=== PATIENT | female | born 1980 | race Caucasian/White ===

== ENCOUNTER → 2016-08-24 | Outpatient (CLI) | payer OTHER ==
[~2016-08-24] MED LIST: ASPI-435 PO; HYDR-5688 PO; IBUP-1450 PO; OXYC-57 PO; PROM25TA9 PO
[2016-08-24 13:21] LABS: URINE APPEARANCE CLEAR (CLEAR); URINE BILIRUBIN NEG (NEG); URINE COLOR YELLOW; URINE EPITHELIAL CELL AUTO >30 /lpf (0-5); URINE NITRITE NEG (NEG); URINE SPECIFIC GRAVITY 1.009 (1.000-1.030); UROBILINOGEN NEG (NEG)
[2016-08-24 13:24] LABS: MANUAL MICROSCOPIC REQUIRED? NO; REVIEW REQ? NO
== END | disposition home or self-care (01) ==
LOC: C.LABPBG 09:45
PROVIDERS: ATTEND Internal Medicine
DX: R31.29 Other microscopic hematuria (principal); R00.2 Palpitations

== ENCOUNTER → 2017-03-26 | Day surgery (SDC) | payer OTHER ==
[2017-03-24 16:13] VITALS: BMI 21.0
--- NOTE | 2017-03-25 22:19 | History and Physical ---
History & Physical Date Mar 25, 2017. Chief Complaint Left foot pain History of Present Illness The patient is a 36 year old female with complaints of left foot pain after an inversion injury to the left foot and ankle on 03.19.17. She had x-rays done on the left foot which noted a displaced 5th metatarsal shaft fx. She was placed in a splint and kept NWB. She was referred to us for surgical evaluation. Past Medical/Surgical History PMH: None Family Hx: non contributory Past surgical hx: C sections x 2. Allergies Coded Allergies: No Known Allergies (Unverified , 03/24/17) Home Medications Scheduled PRN Hydrocodone/Acetaminophen 5MG/325MG ([place] 5MG/325MG), 1 TABLET PO Q4 PRN for Pain Physical Examination Skin: warm/dry, no rash Eyes: normal inspection Head: normocephalic, atraumatic Neck: supple, trachea midline Respiratory/Chest: lungs clear, normal breath sounds, no respiratory distress Cardiovascular: regular rate, rhythm, no murmur Abdomen / GI: normal bowel sounds, non tender Extremities: + pertinent finding (Left foot: NWB LLE. Moderate swelling of the left foot with ecchymosis over the lateral foot. Tender to palpation at the 5th metatarsal shaft. No ROM or strength testing done.) Neurologic/Psych: alert, oriented x 3 Addiitonal Comments: 3 views of the left foot demonstrate a comminuted and angulated 5th metatarsal shaft fx. Diagnosis Left 5th metatarsal fx Plan of Treatment An ORIF of the left 5th metatarsal fx is recommended. All potential risks, benefits, complications, alternatives, and rehab have been discussed with the patient. She wishes to proceed with the surgery as indicated. She will be scheduled for 03.26.17 with plan of ASA 81 mg BID for at least 4 wks for DVT prophylaxis.
[~2017-03-26] VITALS: Ht 170.2 cm; Wt 62.3 kg
[~2017-03-26] MED LIST changes: +ATROPINE SULFATE 0.1 MG/ML 5ML SYR IV PRN; +BACITRACIN 50000 UNIT VIAL ONE; +BUPIVACAINE 0.5 % 5 MG/1 ML MPF 30ML VIAL ONE; +CEFAZOLIN SOD 1000MG/55 ML D5W IV ONE; +DEXAMETHASONE SOD INJ 4 MG/ML VIAL ONE; +EpHEDrine SULFATE INJ 50 MG/ML AMP IV PRN; +FENTANYL CITRATE INJ 50 MCG/1 ML 2 ML VIAL ONE; +KETAMINE HCL INJ 50 MG/ML 10 ML VIAL ONE; +LACTATED RINGER'S 1000ML 1,000 ML IV SCH; +LIDOCAINE HCL 2% 2 ML VIAL (20MG/ML) ONE; +MIDAZOLAM HCL 1 MG/ML 2ML VIAL ONE; +ONDANSETRON INJ 2 MG/ML 2 ML VIAL IV PRN; +ONDANSETRON INJ 2 MG/ML 2 ML VIAL ONE; +OXYCODONE/ACETAMINOPHEN 5-325 TAB ONE; +OXYCODONE/ACETAMINOPHEN 5-325 TAB PO PRN; +PROPOFOL IV EMULSION 10 MG/ML 20 ML VIAL IV ONE; +ROPIVACAINE 0.5% 5 MG/ML 30 ML VIAL ONE
[2017-03-26 05:54] VITALS: BP 130/71; PULSE 55; TEMP 36.9; O2SAT 100; Ht 170.2 cm; Wt 62.3 kg
--- NOTE | 2017-03-26 07:50 | History & Physical Bridge Note ---
H&P Re-Evaluation Bridge Note: I have examined the patient, reviewed the History & Physical and in the interval since the performance of the History & Physical I have noted the following changes of clinical significance: No changes noted
--- NOTE | 2017-03-26 09:26 | DIAGNOSTIC IMAGING REPORT ---
Radiology LEFT FOOT 2 VIEWS CLINICAL HISTORY: 36 years-old Female presenting with ORIF LEFT 5TH METATARSAL FX. TECHNIQUE: 2 fluoroscopic spot image(s) obtained as part of an intraoperative procedure. COMPARISON: None. FINDINGS/IMPRESSION: Cortical compression plate and screw fixation of the fifth metatarsal. Normal anatomic alignment. Please see surgical report for further details. Fluoroscopy dosage (mGy): Not available. Fluoroscopy time: 9 seconds. Number of fluoroscopic spot images: 2. Electronically signed by: Jaime Varma M.D. 03/26/2017 9:25 AM Dictated Date/Time: 03/26/2017 9:24 AM
--- NOTE | 2017-03-26 09:40 | [facility] Post Operative Brief Note ---
Immediate Operative Summary Operative Date Mar 26, 2017. Pre-Operative Diagnosis Left Displaced Comminuted Angulated Fifth Metatarsal Fracture Post-Operative Diagnosis Left Displaced Comminuted Angulated Fifth Metatarsal Fracture Procedure(s) Performed Open Reduction Internal Fixation Left Fifth Metatarsal Fracture Surgeon Dr. Huynh Digital Proofing And Platemaker Surgeon(s) Gui Schumacher PA-C Estimated Blood Loss 1 cc Findings See dict Specimens none per surgeon Drains None Anesthesia GLMA w/ popliteal block Complication(s) None Disposition Recovery Room / PACU
[2017-03-26] MEDS: FENTANYL CITRATE INJ 50 MCG/1 ML 2 ML VIAL IV PRN ×4 (09:53→10:09)
--- NOTE | 2017-03-26 10:01 | Discharge Instructions ---
Discharge Instructions Date of Service Mar 26, 2017. Admission Reason for Admission: Left Foot 5th Metatarsal Fracture Discharge Discharge Diagnosis / Problem: left 5th metatarsal fracture Discharge Goals Goal(s): Decrease discomfort, Improve function Activity Recommendations Activity Limitations: per Instructions/Follow-up section Weightbearing Status: Left non-weightbearing . Instructions / Follow-Up Instructions / Follow-Up ACTIVITY RECOMMENDATIONS: Limitations: No weight bearing to affected limb at all times. SPECIAL CARE INSTRUCTIONS: * Some drainage onto the dressing is normal and is no cause for alarm. * Some swelling is natural especially after walking. * When resting, keep your foot elevated above the level of your heart. * Call [facility] if you notice: -Increased drainage -Fever over 101 degrees F -Severe constant pain BANDAGE: * Leave bandage/cast in place unless otherwise directed. * Keep bandage/cast dry at all times. * If the bandage seems too tight, you may loosen the ANYI bandages and reapply lightly. Leave the padding and splint in place. FOLLOW UP VISIT WITH DR. WASHINGTON If appointment is not already scheduled: Please call [facility] after you get home today to schedule a follow-up appointment for [address] Washington at . Current Hospital Diet Patient's current hospital diet: Discharge Diet Recommended Diet: Regular Diet Procedures Procedures Performed: Open Reduction Internal Fixation Left Fifth Metatarsal Fracture Pending Studies Studies pending at discharge: no Medical Emergencies . Who to Call and When: Medical Emergencies: If at any time you feel your situation is an emergency, please call 121 immediately. . Non-Emergent Contact Non-Emergency issues call your: Surgeon Call Non-Emergent contact if: temperature is above 101, your pain is not controlled, your pain is worsening . "Provider Documentation" section prepared by Gui Schumacher. . VTE Core Measure Inpt VTE Proph given/why not?: SCD's
[2017-03-26 10:34] VITALS: BP 129/60; PULSE 66; TEMP 36.7; O2SAT 95
--- NOTE | 2017-03-26 10:37 | DIAGNOSTIC IMAGING REPORT ---
LEFT FOOT MIN 3 VIEWS ROUTINE CLINICAL HISTORY: 36 years-old Female presenting with post op fifth metatarsal fracture fixation. TECHNIQUE: Frontal, oblique, and lateral views of the left foot were obtained. COMPARISON: 03/26/2017 fluoroscopic images. FINDINGS: Overlying plaster splint degrades evaluation of underlying osseous detail. Within this limitation, cortical compression plate and screw fixation of the fifth metatarsal noted. Additional screw fixation across the metatarsal neck. Anatomic alignment maintained. No other osseous abnormality is appreciated. IMPRESSION: No malalignment at the fifth metatarsal fracture fixation. Electronically signed by: Jaime Varma M.D. 03/26/2017 10:36 AM Dictated Date/Time: 03/26/2017 10:34 AM
[2017-03-26 11:04] VITALS: BP 131/71; PULSE 60; O2SAT 99
[2017-03-26 11:34] VITALS: BP 117/75; PULSE 59; TEMP 36.4; O2SAT 99
[2017-03-26 12:30] VITALS: BP 107/67; PULSE 71; O2SAT 98
--- NOTE | 2017-03-26 12:36 | Anesthesiology Progress Note ---
Anesthesia Post Op Note Date & Time Mar 26, 2017 at 12:36 Vital Signs Pain Intensity: 5 Vital Signs Past 12 Hours Date Time Temp Pulse Resp B/P (MAP) Pulse Ox O2 Delivery O2 Flow Rate FiO2 03/26/17 11:34 36.4 59 18 117/75 99 Room Air 03/26/17 11:04 60 18 131/71 99 Room Air 03/26/17 10:34 36.7 66 18 129/60 95 Room Air 03/26/17 10:28 36.4 03/26/17 10:20 90 16 134/97 96 Room Air 03/26/17 10:10 90 16 118/78 95 Room Air 03/26/17 09:49 36.5 113 16 149/89 100 Oxymask 10 03/26/17 05:54 36.9 55 16 130/71 (90) 100 Room Air Notes Mental Status: alert / awake / arousable, participated in evaluation Pt Amnestic to Procedure: Yes Nausea / Vomiting: adequately controlled Pain: adequately controlled Airway Patency, RR, SpO2: stable & adequate BP & HR: stable & adequate Hydration State: stable & adequate Anesthetic Complications: no major complications apparent
--- NOTE | 2017-03-30 07:06 | OPERATIVE REPORT ---
DATE OF OPERATION: 03/26/2017 PREOPERATIVE DIAGNOSIS: Left displaced comminuted and angulated fifth metatarsal fracture. POSTOPERATIVE DIAGNOSIS: Same. PROCEDURE PERFORMED: Open reduction and internal fixation of left fifth metatarsal fracture. SURGEON: Dr. Huynh. SENIOR DATA ANALYST: Gui Schumacher PA-C who was present for patient positioning, sterile prep and drape, management of retractors and instruments. He was present through the critical portions of the case including wound closure, application of sterile dressing and transport of the patient to recovery. ANESTHESIA: General LMA with popliteal block. SPECIMENS: None. DRAINS: None. COMPLICATIONS: None. BLOOD LOSS: 1 mL. PERTINENT HISTORY: This is a 36-year-old woman who had twisted her foot and felt a severe painful pop of the left foot. She had pain and swelling thereafter and difficulty ambulating. She was seen in the clinic eventually and had radiographs reviewed, was then scheduled for surgery as indicated. All potential risks, benefits, complications, alternatives, rehab, potential for incomplete relief of symptoms, need for further surgery, DVT, PE, , persistent pain, swelling, scarring, weakness, neurovascular injury, wound complications, hardware failure, nonunion, malunion were discussed with the patient. The patient decided to proceed with the procedure as indicated. PROCEDURE IN DETAIL: The patient had a popliteal block administered in the preop holding area, taken to the operative suite, placed supine on the operating room table. After review of the consent and identification of proper operative site, the patient was anesthetized, LMA was placed. Tourniquet was applied high on the left thigh over cast padding. Left lower extremity was then sterilely prepped and draped in usual fashion, elevated and exsanguinated with Esmarch bandage. Esmarch tourniquet was applied over sterile surgical towel at the level of the ankle. A 15 blade scalpel was then used to make an incision over the lateral aspect of left fifth metatarsal. Incision was then deepened through subcutaneous tissue. Meticulous hemostasis was achieved with electrocautery. Full thickness skin flaps were then developed. Next, the periosteum was then incised over the fifth metatarsal at the site of the fracture. This incision was then carefully debrided with a 15 blade scalpel and irrigation with sterile normal saline. Next, a dental pick was then used to manipulate the fracture fragments and remove any extraneous fibrinous debris and a blood clot and then the fracture was then reduced using bone reduction forceps. Next, 0.8 K-wire x2 were placed across the fracture fragments to stabilize the fracture in near anatomic position. Next, a Synthes 2.4 mm titanium plate was then contoured and affixed to the lateral aspect of the fifth metatarsal with multiple bone screws placed under live fluoroscopic assistance. A single lag screw was placed from superior to inferior, crossing the fracture fragments as a lag screw. Next, multiple lag screws were placed through the plate into the bone fracture fragments to stabilize and compress them as well. Next, final radiographs were obtained in AP, lateral and oblique positions, noting near anatomic reduction and fixation. The wound was then copiously irrigated with sterile normal saline. Deep soft tissue and periosteum was then closed using interrupted 2-0 Vicryl sutures. The dermis was then closed using buried interrupted 3-0 Vicryl sutures. Skin was closed using interrupted 4-0 nylon sutures. A sterile compressive dressing and well-padded splint was applied overwrapped with an Adebayo wrap. The foot was held in neutral dorsiflexion. The tourniquet was released. The patient was awakened and taken to recovery in stable condition. I attest to the content of the Intraoperative Record and any orders documented therein. Any exception s are noted below.
== END | disposition home or self-care (01) ==
LOC: C.ACU 05:30
PROVIDERS: ATTEND Orthopaedic Surgery Sports Medicine
DX: S92.352A Displaced fracture of fifth metatarsal bone, left foot, initial encounter for closed fracture (principal); X50.0XXA Overexertion from strenuous movement or load, initial encounter

== ENCOUNTER → 2018-03-03 | Outpatient (CLI) | payer OTHER ==
[~2018-03-03] MED LIST changes: -ATROPINE SULFATE 0.1 MG/ML 5ML SYR IV PRN; -BACITRACIN 50000 UNIT VIAL ONE; -BUPIVACAINE 0.5 % 5 MG/1 ML MPF 30ML VIAL ONE; -CEFAZOLIN SOD 1000MG/55 ML D5W IV ONE; -DEXAMETHASONE SOD INJ 4 MG/ML VIAL ONE; -EpHEDrine SULFATE INJ 50 MG/ML AMP IV PRN; -FENTANYL CITRATE INJ 50 MCG/1 ML 2 ML VIAL ONE; -HYDR-5688 PO; -IBUP-1450 PO; -KETAMINE HCL INJ 50 MG/ML 10 ML VIAL ONE; -LACTATED RINGER'S 1000ML 1,000 ML IV SCH; -LIDOCAINE HCL 2% 2 ML VIAL (20MG/ML) ONE; -MIDAZOLAM HCL 1 MG/ML 2ML VIAL ONE; -ONDANSETRON INJ 2 MG/ML 2 ML VIAL IV PRN; -ONDANSETRON INJ 2 MG/ML 2 ML VIAL ONE; -OXYC-57 PO; -OXYCODONE/ACETAMINOPHEN 5-325 TAB ONE; -OXYCODONE/ACETAMINOPHEN 5-325 TAB PO PRN; -PROM25TA9 PO; -PROPOFOL IV EMULSION 10 MG/ML 20 ML VIAL IV ONE; -ROPIVACAINE 0.5% 5 MG/ML 30 ML VIAL ONE
[2018-03-03 17:21] LABS: BASO % 0.2 %; BASO ABS # 0.01 K/uL (0-0.2); EOS ABS # 0.13 K/uL (0-0.5); HEMATOCRIT 38.5 % (37-47); HEMOGLOBIN 12.9 g/dL (12.0-16.0); IG# 0.01 K/uL (0.00-0.02); LYMPH % 31.2 %; LYMPH ABS # 2.02 K/uL (1.2-3.4); MEAN CELL VOLUME 94.6 fL (80-100); MEAN CORPUSCULAR HEMOGLOBIN 31.7 pg (25-34); MEAN CORPUSCULAR HGB CONC 33.5 g/dl (32-36); MEAN PLATELET VOLUME 10.5 fL (7.4-10.4); MONO % 5.3 %; MONO ABS # 0.34 K/uL (0.11-0.59); NEUT % 61.1 %; NEUT ABS # 3.96 K/uL (1.4-6.5); PLATELET COUNT 259 K/uL (130-400); RED CELL DISTRIBUTION WIDTH CV 13.1 % (11.5-14.5); RED CELL DISTRIBUTION WIDTH SD 45.3 fL (36.4-46.3); WHITE BLOOD COUNT 6.47 K/uL (4.8-10.8)
== END | disposition home or self-care (01) ==
LOC: C.LABBC 14:44
PROVIDERS: ATTEND Internal Medicine
DX: N92.0 Excessive and frequent menstruation with regular cycle (principal)